=== PATIENT | male | born 1990 | race African-American/Black ===

== ENCOUNTER 2019-03-18 20:08 | Emergency (ER) | payer MEDICAID, OTHER ==
[~2019-03-18] VITALS: Ht 172.7 cm; Wt 70.3 kg
--- NOTE | 2019-03-18 20:45 | NUR ---
REGGIE CABEZAS PAC AT THE BED SIDE
[2019-03-18] MEDS ORDERED: IV NS 0.9% 1,000 ML BAG IV ONE (21:00)
--- NOTE | 2019-03-18 22:59 | NUR ---
IV removed. Catheter intact and site benign. Pressure and 4x4 applied to site. No bleeding noted.Patient discharged to home in stable condition. Written and verbal after care instructions given. Patient verbalizes understanding of instruction. pt refused to answer the question if he has a place to stay or he is a homeless. pt was provided w/ a shirt upon d/c since his shirt was cut by community engagement representative on the field. pt walked out w. an steady gait.
[2019-03-18 23:01] VITALS: BP 113/77
== END 2019-03-18 23:02 | disposition home or self-care (01) ==
LOC: ER 20:10
DX: E86.0 Dehydration (principal)
CPT/HCPCS: 96360; 99283; J7030 ×2

== ENCOUNTER 2019-03-20 16:52 | Emergency (ER) | payer MEDICAID ==
[~2019-03-20] VITALS: Ht 165.1 cm; Wt 70.8 kg
--- NOTE | 2019-03-20 17:09 | NUR ---
PT BIBLAPD, FOUND HIM SLEEPING IN HIS CAR IN FRONT OF HOSPITAL PARKING C/O LEFT SHOULDER PAIN, UNCOOPERATIVE. PT ALERT BUT REFUSES TO TALK, VSS, BREATHING EVEN AND UNLABORED ON ROOM AIR. PT CONNECTED TO THE MONITOR
--- NOTE | 2019-03-20 17:09 | NUR ---
Pratima gregorio in [facility] - 03/20/19 at 1747 by MILLER L [facility] DEFORMITY NOTED
--- NOTE | 2019-03-20 17:51 | NUR ---
XRAY AT BEDSIDE
--- NOTE | 2019-03-20 18:01 | NUR ---
GLUCOSE @ 64. PA WESLEY NOTIFIED
--- NOTE | 2019-03-20 18:01 | NUR ---
Pratima gregorio in ED - 03/20/19 at 1821 by MILLER GLUCOSE AT 694, MINDY LOONEY NOTIFIED
--- NOTE | 2019-03-20 18:21 | NUR ---
Patient is resting comfortably in bed with eyes closed. Easily aroused. VSS
--- NOTE | 2019-03-20 19:18 | NUR ---
Pratima gregorio in [facility] - 03/20/19 at 1928 by MILLER Patient discharged to home in stable condition. Written and verbal after care instructions given. Patient verbalizes understanding of instruction.
[2019-03-20 19:27] VITALS: BP 131/87
--- NOTE | 2019-03-20 19:28 | NUR ---
Patient given written and verbal discharge instructions. Patient verbalizes understanding of instructions. Patient is ambulatory with steady gait. Refuses offer of [facility] placement. Patient given list of available shelters in surrounding area.
== END 2019-03-20 19:27 | disposition home or self-care (01) ==
LOC: ER 16:54
DX: M25.512 Pain in left shoulder (principal); E16.2 Hypoglycemia, unspecified; R94.31 Abnormal electrocardiogram [ECG] [EKG]; Z59.0 Homelessness
CPT/HCPCS: 73030-TC; 82962-TC

== ENCOUNTER 2019-03-22 08:33 | Emergency (ER) | payer MEDICAID ==
[~2019-03-22] VITALS: Ht 172.7 cm; Wt 70.3 kg
--- NOTE | 2019-03-22 08:57 | NUR ---
PT, SELF PRESENT TO ED. AMBULATORY C/O GENERALIZED WEAKNESS, LETHARGY. STATES I FEEL LIKE MY BLOOD SUGAR IS LOW. DENIES HAVING DIABETES. STABLE VITALS. AWAITING MD MCGARRY.
--- NOTE | 2019-03-22 09:19 | NUR ---
dr mora at bedside for eval.
[2019-03-22] MEDS ORDERED: IV NS 0.9% 1,000 ML BAG IV ONE (09:30)
--- NOTE | 2019-03-22 09:33 | NUR ---
iv line started blood drawn and sent to lab.
--- NOTE | 2019-03-22 09:37 | NUR ---
radiology at bedside for chest xray.
[2019-03-22 09:40] LABS: BASOPHILS % (AUTO) 0.4 % (0.0-2.0); EOSINOPHILS % (AUTO) 1.5 % (0.0-6.0); HEMATOCRIT 39 % (39-51); HEMOGLOBIN 12.8 g/dL (13.5-17.5); LYMPHOCYTES # (AUTO) 1.3 /CMM (0.8-4.8); LYMPHOCYTES % (AUTO) 29.7 % (20.0-44.0); MEAN CORPUSCULAR HGB CONC 33 g/dl (31.0-36.0); MEAN CORPUSCULAR VOLUME 89 fL (80-96); MONOCYTES # (AUTO) 0.3 /CMM (0.1-1.30); MONOCYTES % (AUTO) 7.3 % (2.0-12.0); NEUTROPHILS # (AUTO) 2.8 /CMM (1.8-8.9); NEUTROPHILS % (AUTO) 61.1 % (43.0-81.0); PLATELET COUNT (AUTO) 193 /CMM (150-450); RED BLOOD CELL COUNT(AUTO) 4.37 MIL/uL (4.5-6.0); WHITE BLOOD COUNT (AUTO) 4.5 K/uL (4.3-11.0)
[2019-03-22 09:53] LABS: ALANINE AMINOTRANSFERASE 19 U/L (12-78); ALBUMIN 3.7 g/dL (3.4-5.0); ALKALINE PHOSPHATASE 50 U/L (46-116); ASPARTATE AMINOTRANSFERASE 16 U/L (15-37); BILIRUBIN,DIRECT 0.1 mg/dL (0.0-0.2); BILIRUBIN,TOTAL 0.4 mg/dL (0.2-1.0); CALCIUM, SERUM 9.4 mg/dL (8.5-10.1); CHLORIDE 108 mmol/L (98-107); CREATININE 0.9 mg/dL (0.6-1.3); GLUCOSE 123 mg/dL (74-106); POTASSIUM 4.1 mmol/L (3.5-5.1); SODIUM SERUM 142 mmol/L (136-145); TOTAL PROTEIN, SERUM 7.4 g/dL (6.4-8.2); UREA NITROGEN, BLOOD 11 mg/dL (7-18)
[2019-03-22 09:57] LABS: CARBON DIOXIDE 30 mmol/L (21-32)
--- NOTE | 2019-03-22 11:19 | NUR ---
Social service consult requested by Dr. Guzman for homeless resources. Pt. is a 29 year old male who came to [facility] because he felt very weak today. SW met with the pt. bedside. Pt. is alert and oriented x 4. Pt. had his eyes closed throughout the assessment. Pt. is not very forthcoming with information and was mumbling words. SW had to ask him to speak louder several times. Pt. states he moved [place] [facility] [place] a week ago. Pt. is homeless as he has no where to live. SW asked pt. if he would like longterm placement, pt. replied stating, " Is that is nursing home social worker question." and further stated, " I need a phone." Pt. is not willing to participate in an assessment and SW is unable to assist the pt. with homeless resources. ED PIYUSH Loredo was notified.
--- NOTE | 2019-03-22 12:07 | NUR ---
pt provided w/ lunch tray.
--- NOTE | 2019-03-22 14:01 | NUR ---
IV removed. Catheter intact and site benign. Pressure and 4x4 applied to site. No bleeding noted. Pt discharged in stable condition. homeless waiver form signed by patient.
[2019-03-22 14:03] VITALS: BP 132/84
== END 2019-03-22 14:04 | disposition home or self-care (01) ==
LOC: ER 08:38
DX: R53.1 Weakness (principal); Z59.0 Homelessness
CPT/HCPCS: 36415; 71045; 80048; 80076; 82962; 84443; 84484; 85025; 99284; J7030